=== PATIENT | female | born 1970 | race Caucasian/White ===

== ENCOUNTER 2018-07-09 09:48 | Emergency (ER) | payer MEDICAID ==
[~2018-07-09] VITALS: Ht 177.8 cm; Wt 129.5 kg
[~2018-07-09 09:48] MED LIST: MEDR10TA PO
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
[2018-07-09] MEDS ORDERED: triamcinolone acetonide 40mg/ml inj IM ONE (10:30)
[2018-07-09 11:12] VITALS: BP 151/80
[2018-07-09] MEDS ORDERED: AMLO5TAB PO (15:22)
[2018-07-09] MEDS ORDERED: METH4TAB81 PO (17:52)
== END 2018-07-09 11:13 | disposition home or self-care (01) ==
LOC: ER 09:49
DX: R22.0 Localized swelling, mass and lump, head (principal); Z90.49 Acquired absence of other specified parts of digestive tract
CPT/HCPCS: 99283; J3301

== ENCOUNTER 2018-07-09 14:44 | Emergency (ER) | payer MEDICAID ==
[~2018-07-09] VITALS: Ht 177.8 cm; Wt 129.5 kg
[2018-07-09] MEDS ORDERED: normal saline 1000ML IV soln IVB ONE (15:00)
[2018-07-09] MEDS ORDERED: famotidine/PF 10 mg/ml inj IV ONE (15:00)
[2018-07-09] MEDS ORDERED: diphenhydrAMINE 50 mg/ml inj IV ONE (15:00)
[2018-07-09] MEDS ORDERED: methylPREDNISolone sod succ 125mg/2ml vial IV ONE (15:00)
[2018-07-09] MEDS ORDERED: AMLO5TAB PO (15:22)
[2018-07-09] MEDS ORDERED: epiNEPHrine 1 mg/ml inj SQ ONE (16:00)
[2018-07-09] MEDS ORDERED: METH4TAB81 PO (17:52)
[2018-07-09 18:22] VITALS: BP 146/99
== END 2018-07-09 18:23 | disposition home or self-care (01) ==
LOC: ER 14:44
DX: T78.3XXA Angioneurotic edema, initial encounter (principal); Z90.49 Acquired absence of other specified parts of digestive tract
CPT/HCPCS: 96374; 96375; 99283; J0171; J1200; J2930; J3490

== ENCOUNTER 2018-11-22 23:29 | Emergency (ER) | payer MEDICAID ==
[~2018-11-22] VITALS: Ht 177.8 cm; Wt 100.0 kg
[~2018-11-22 23:29] MED LIST changes: +AMLO5TAB PO; +METH4TAB81 PO
[2018-11-22] MEDS ORDERED: dexamethasone sod phosphate 10mg/ml inj IV STA (23:41)
[2018-11-22] MEDS ORDERED: diphenhydrAMINE 50 mg/ml inj IV ONE (23:45)
[2018-11-22] MEDS ORDERED: famotidine/PF 10 mg/ml inj IV ONE (23:45)
[2018-11-22] MEDS ORDERED: tranexamic acid inj. 1,000 MG in normal saline 100ml IV soln 100 ML IV ONE (23:45)
[2018-11-22] MEDS ORDERED: epiNEPHrine 1 mg/ml inj SQ PRN (23:45)
[2018-11-23] MEDS ORDERED: PRED15SO23 PO (01:39)
[2018-11-23] MEDS ORDERED: PRED20TA PO (01:57)
[2018-11-23] MEDS ORDERED: EPIN0.3P3 IM (02:22)
[2018-11-23 02:29] VITALS: BP 192/112
== END 2018-11-23 02:32 | disposition home or self-care (01) ==
LOC: ER 23:30
DX: T78.3XXA Angioneurotic edema, initial encounter (principal); I10 Essential (primary) hypertension; Z88.8 Allergy status to other drugs, medicaments and biological substances; Z79.899 Other long term (current) drug therapy; Z90.49 Acquired absence of other specified parts of digestive tract
CPT/HCPCS: 93005; 96372; 96374; 96375; 99283; J0171; J1100; J1200; J3490

== ENCOUNTER 2022-07-06 00:39 | Emergency (ER) | payer MEDICAID ==
[~2022-07-06] VITALS: Ht 177.8 cm; Wt 122.7 kg
[~2022-07-06 00:39] MED LIST changes: +EPIN0.3P3 IM; +PRED15SO23 PO
[2022-07-06 00:45] VITALS: BP 198/124
[2022-07-06 01:10] LABS: BASOPHILS % (AUTO) 0.5 % (0-1); EOSINOPHILS # (AUTO) 0.4 X10'3 (0-0.9); EOSINOPHILS % (AUTO) 4.7 % (0-6); LYMPHOCYTES # (AUTO) 1.8 X10'3 (1.1-4.8); LYMPHOCYTES % (AUTO) 21.1 % (21-51); MEAN PLATELET VOLUME 8.3 FL (7.4-10.4); MONOCYTES # (AUTO) 0.8 X10'3 (0-0.9); MONOCYTES % (AUTO) 9.4 % (2-12); NEUTROPHILS # (AUTO) 5.5 X10'3 (1.8-7.7); NEUTROPHILS % (AUTO) 64.3 % (42-75); PLATELET COUNT 285 X10'3 (140-440); WHITE BLOOD COUNT 8.6 X10'3 (4.5-11.0)
[2022-07-06 01:24] LABS: ALANINE AMINOTRANSFERASE 16 U/L (12-78); ALBUMIN 3.4 G/DL (3.4-5.0); ALBUMIN/GLOBULIN RATIO 0.9 (1.1-1.5); ALKALINE PHOSPHATASE 117 IU/L (46-116); ANION GAP 5 (8-16); ASPARTATE AMINO TRANSFERASE 26 U/L (10-37); BILIRUBIN,TOTAL 0.7 MG/DL (0.1-1.0); BLOOD UREA NITROGEN 7 MG/DL (7-18); BUN/CREATININE RATIO 8.8 (6.6-38.0); CALCIUM 9.9 MG/DL (8.5-10.1); CHLORIDE 108 MMOL/L (99-107); GLUCOSE 135 MG/DL (70-104); LIPASE 146 U/L (73-393); SODIUM 140 MMOL/L (135-145); TOTAL CARBON DIOXIDE 26.8 MMOL/L (24-32); eGFR 76 ML/MIN
[2022-07-06 01:42] LABS: HEMATOCRIT 36.9 % (35.0-45.0); HEMOGLOBIN 11.9 g/dl (12.0-16.0); MEAN CORPUSCULAR VOLUME 58.4 FL (78-98); RED BLOOD COUNT 6.32 X10'6 (4.20-5.60)
[2022-07-06 01:43] LABS: MEAN CORPUSCULAR HEMOGLOBIN 18.9 PG (27.0-31.0); MEAN CORPUSCULAR HGB CONC 32.4 g/dL (33.0-36.5); RED CELL DISTRIBUTION WIDTH 20.5 % (11.5-14.5)
[2022-07-06 03:59] LABS: ANISOCYTOSIS 3+; ELLIPTOCYTES FEW; MICROCYTOSIS 3+; PLATELET ESTIMATE NORMAL
== END 2022-07-06 03:49 | disposition left against medical advice (07) ==
LOC: ER 00:39
DX: R10.9 Unspecified abdominal pain (principal); Z53.21 Procedure and treatment not carried out due to patient leaving prior to being seen by health care provider
CPT/HCPCS: 36415; 80053; 83690; 85008; 85025